=== PATIENT | female | born 1950 | race Two or more races ===

== ENCOUNTER 2022-08-08 18:42 | Emergency (ER) | payer OTHER ==
[~2022-08-08] VITALS: Ht 157.5 cm; Wt 52.2 kg
[2022-08-08] MEDS ORDERED: LANTUS SOL100 UNIT/1 SQ (19:35)
[2022-08-08] MEDS ORDERED: COZAAR25 MG PO (19:35)
== END 2022-08-08 21:19 | disposition home or self-care (01) ==
LOC: ER 18:42
DX: Z18.9 Retained foreign body fragments, unspecified material (principal); Z88.0 Allergy status to penicillin; Z79.4 Long term (current) use of insulin